=== PATIENT | female | born 1990 | race Caucasian/White ===

== ENCOUNTER 2017-01-30 16:15 | Emergency (ER) | payer OTHER ==
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
[~2017-01-30 16:15] MED LIST: AMOXICILLIN500 M1 PO; BENZONATATE PO; FESO4 PO; IBUPROFEN800 MG PO; LORTAB 5/500 TA1 TA1; NAPROSYN500 MG PO; PHENERGAN SUPP25 MG PR; PHENERGAN25 M1 DOB; VOLTAREN75 MG PO
[2017-01-30] MEDS ORDERED: REMERON PO (16:33)
[2017-01-30] MEDS ORDERED: KLONOPIN PO (16:33)
== END 2017-01-30 20:00 | disposition home or self-care (01) ==
LOC: SED 16:15
DX: S80.01XA Contusion of right knee, initial encounter (principal); S70.01XA Contusion of right hip, initial encounter; S30.810A Abrasion of lower back and pelvis, initial encounter; Z23 Encounter for immunization; Z79.899 Other long term (current) drug therapy; Y04.8XXA Assault by other bodily force, initial encounter
CPT/HCPCS: 29530; 36415; 72100; 73502; 73562; 84703; 90471; 90715; 96372; 99283; J1885